=== PATIENT | male | born 1950 | race Caucasian/White ===

== ENCOUNTER 2020-09-02 15:44 | Day surgery (SDC) | payer MEDICARE, BC ==
[~2020-09-02 15:44] MED LIST: Bupivacaine PF 0.75% SDV 10 ML ONE; CEFAZOLIN 1 GM VIAL ONE; Lidocaine 1% PF 5 ML VIAL ONE; Lidocaine 4% PF 5 ML AMP ONE; Maxitrol 0.1% Opth Oint 3.5 GM TUBE ONE; PROPOFOL 200 MG/20 ML VIAL ONE; Triamcinolone 40 MG/ML VIAL ONE
[2020-09-02] MEDS ORDERED: Cyclopentolate 1% Opth Drop 2 ML BOT ONE (16:53)
[2020-09-02] MEDS ORDERED: Phenylephrine 2.5% Ophth Soln 5 ML BOT ONE (16:53)
[2020-09-02] MEDS ORDERED: Phenylephrine 2.5% Ophth Soln 5 ML BOT FS SCH (17:00)
[2020-09-02] MEDS ORDERED: Cyclopentolate 1% Opth Drop 2 ML BOT FS SCH (17:00)
[2020-09-02] MEDS ORDERED: EPINEPHrine 0.3 MG in Ophthalmic Irrigation Solution 500 ML IRR SCH (17:00)
[2020-09-02] MEDS ORDERED: Fentanyl 100 MCG/2 ML VIAL ONE (17:55)
[2020-09-02] MEDS ORDERED: Midazolam HCl 2 mg/2 ml Vial ONE (17:55)
--- NOTE | 2020-09-02 22:34 | OP ---
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 PROCEDURES PERFORMED: 1. 25-gauge pars plana vitrectomy, left eye. 2. Rhegmatogenous retinal detachment repair, left eye. 3. Endolaser, left eye. 4. 15% SF6 fill, left eye. ESTIMATED BLOOD LOSS: None. SPECIMENS REMOVED: None. COMPLICATIONS: None. ANESTHESIA: MAC with sub-Tenon block. SUMMARY OF THE OPERATION: The patient was identified in the preoperative holding area, where the correct eye being the left eye was marked for surgery. The patient was taken to the operating room, where MAC anesthesia was induced. The left eye was prepped and draped in the usual sterile ophthalmic fashion for surgery. A wire-clip lid speculum was placed. An inferonasal conjunctival peritomy was fashioned with Marcy scissors for administration of sub-Tenon block. The block consisted of 1:1 ratio of 4% lidocaine and 0.75% Marcaine. A total of 5 mL was administered. A standard 25-gauge pars plana vitrectomy platform was fashioned with trocars placed approximately 4 mm from the limbus. The infusion was noted to be within the vitreous cavity prior to being turned on to infusion pressure of 30 mmHg. The light pipe and microvitrector were introduced in the eye under visualization of the BIOM viewing system. A macula-on rhegmatogenous retinal detachment was noted from approximately 8 o'clock to 1 o'clock. A horseshoe tear was noted at 12 o'clock and the fluid extended posteriorly just beyond the supratemporal arcade vessels. A careful core and peripheral shave vitrectomy were performed with the assistance of scleral depression. Great care was taken to relieve all traction off the aforementioned defect. Following vitrectomy, the defect was marked with Endo cautery as well as creation of a posterior drainage retinotomy at approximately 12 o'clock superior to the supratemporal arcade vessels. The drainage retinotomy was subsequently opened with a flute needle. An air-fluid exchange was performed, which allowed for complete flattening of the retina. Following air-fluid exchange, the Endolaser was used to provide barricade around the retinotomy site, the defect, as well as the cerclage along the area of the retinal detachment. Following Endolaser, the flute needle was reintroduced in the eye to remove any residual subretinal fluid. Subsequently, an air-gas exchange was performed with 15% SF6. The cannulas were sequentially removed, and all sclerotomies were noted to be gas tight. Subconjunctival Ancef and Kenalog were injected. The wire-clip lid speculum was removed followed by application of TobraDex ophthalmic ointment and a light patch and shield. The patient tolerated the procedure well and was taken to outpatient recovery area in good condition. Job ID: [id number]
== END 2020-09-02 19:47 | disposition home or self-care (01) ==
LOC: SDC 15:44
PROVIDERS: ATTEND Ophthalmology Retina Specialist
PROC: 08T53ZZ Resection of Left Vitreous, Percutaneous Approach (ICD-10-PCS; principal; 2020-09-02)
DX: H33.012 Retinal detachment with single break, left eye (principal); Z88.2 Allergy status to sulfonamides
CPT/HCPCS: 67025; J0171; J0690; J2001; J2250; J2704; J3010; J3301; J3490